=== PATIENT | male | born 2000 | race American Indian/Alaskan Native ===

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

== ENCOUNTER 2021-11-03 12:49 | Emergency (ER) | payer SELFPAY ==
[2021-11-03 13:30] VITALS: BP 139/64
--- NOTE | 2021-11-03 15:33 | Event Note ---
Date: 11/03/21 suture removed 3 from right forearm, has it partially removed in [facility] where he had suregry but they missed 2
--- NOTE | 2021-11-03 15:51 | Emergency Department Report ---
Suture/Staple Removal - [facility] Chief Complaint: Laceration/Recheck/Suture Stated Complaint: REMOVE STITCHES Time Seen by Provider: 11/03/21 15:32 When Sutures or [place] Placed: 5-7 Days Ago Wound Location: right forearm ED Review of Systems ROS: Stated complaint: REMOVE STITCHES Other details as noted in HPI ED Past Medical Hx - Past Medical History Hx Asthma: Yes (activity induced) - Social History Smoking Status: Never Smoker Substance Use Type: Prescribed - Medications Home Medications: Home Medications Medication Instructions Recorded Confirmed Last Taken Type No Known Home Medications [No 05/11/13 05/11/13 Unknown History Reported Home Medications] Suture Removal Exam - Exam General: Vital signs noted. No distress. Alert and acting appropriately. Other Systems: All other systems reviewed and are unremarkable. ED Course Vital Signs 11/03/21 13:29 Temperature 98.3 F Pulse Rate 95 H Respiratory 16 Rate Blood Pressure 139/64 O2 Sat by Pulse 100 Oximetry Critical care attestation.: If time is entered above; I have spent that time in minutes in the direct care of this critically ill patient, excluding procedure time. ED Disposition Clinical Impression: Encounter for removal of sutures Disposition: HOME / SELF CARE / HOMELESS Is pt being admited?: No Does the pt Need Aspirin: No Condition: Stable Instructions: Wound Closure Removal, Care After Referrals: PRIMARY CARE, [Primary Care Provider] - 3-5 Days
== END 2021-11-03 16:09 | disposition home or self-care (01) ==
LOC: ED 12:49
DX: S51.811D Laceration without foreign body of right forearm, subsequent encounter (principal); X58.XXXD Exposure to other specified factors, subsequent encounter